=== PATIENT | female | born 1950 | race Hispanic/Latino ===

== ENCOUNTER 2024-09-27 06:24 | Observation (INO) | payer MEDICARE, MEDICAID ==
[2024-09-25 11:59] LABS: IMMATURE GRANULOCYTE ABSOLUTE 0.02 K/uL (0-1); NUCLEATED RED BLOOD CELLS 0.0 % (0.0-0.19); PLATELET COUNT (AUTO) 169 K/uL (130-400); RED BLOOD CELL COUNT(AUTO) 4.27 MIL/uL (4.00-5.50); RED CELL DISTRIBUTION WIDTH 13.3 % (11.0-15.5); WHITE BLOOD COUNT (AUTO) 7.8 K/uL (4.8-10.8)
[2024-09-25 12:09] LABS: CREATININE 1.0 mg/dL (0.5-1.0); GLOMERULAR FILTR. RATE CALC 59.0 mL/min (>90); GLUCOSE,RANDOM 102.0 mg/dL (70-105); SODIUM SERUM 142.0 mmol/L (136-145); UREA NITROGEN, BLOOD 25.0 mg/dL (7-18)
[2024-09-25 12:12] LABS: INR 1.05 (0.85-1.15)
--- NOTE | 2024-09-25 12:21 | EKG ---
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
[2024-09-25 12:23] VITALS: BP 171/80; PULSE 68; RESP 19; TEMP 98.1
--- NOTE | 2024-09-25 12:50 | NUR ---
PREOP CONSUELO RT INSTRUCTED PT ON INCENTIVE SPIROMETRY
[2024-09-27] VITALS (27 sets, daily range): BP systolic 108–144; BP diastolic 43–97; PULSE 66–97; RESP 15–20; TEMP 97.1–98.5; O2SAT 97–98
[~2024-09-27] VITALS: Ht 152.4 cm; Wt 104.8 kg
[~2024-09-27 06:24] MED LIST: ALEN70TA80 PO; ASPI-1443 PO; BENA-8 PO; BUPROPION PO; ERGO500093 PO; GABA-529 PO; MELO-106 PO; METF-446 PO; MONT-39 PO; ROSU40TA88 PO
[2024-09-27 07:02] LABS: APPEARANCE,URINE CLEAR (CLEAR); GLUCOSE, URINE (UA) NEGATIVE (NEGATIVE); LEUKOCYTE ESTERASE ,URINE NEGATIVE Leu/uL (NEGATIVE); NITRATE,URINE NEGATIVE (NEGATIVE); OCCULT BLOOD,URINE NEGATIVE (NEGATIVE)
[2024-09-27] MEDS: 0.9%NACL 1000ML 1,000 ML IV ONE (07:18)
[2024-09-27 07:25] LABS: SQUAMOUS EPITHELIAL CELL,UR FEW /HPF (0-2)
[2024-09-27] MEDS ORDERED: TRANEXAMIC ACID 1000MG/10ML ONE (07:59)
[2024-09-27] MEDS ORDERED: LIDOCAINE PF 100MG/5ML (2%) SYRINGE 5ML ONE (08:04)
[2024-09-27] MEDS ORDERED: SUCCINYLCHOLINE CHLORIDE 20 MG/ML 10 ML VIAL ONE (08:04)
[2024-09-27] MEDS ORDERED: MIDAZOLAM HCL 1 MG/ML 2ML VIAL ONE (08:04)
[2024-09-27] MEDS ORDERED: CALCIUM CARB 500MG PO PRN (10:00)
[2024-09-27] MEDS ORDERED: PoTASSium chl 10% ELIXIR 20MEQ 20 MEQ/15 ML UDCUP PO PRN (10:00)
[2024-09-27] MEDS ORDERED: CYCLOBENZAPRINE HCL 10 MG TABLET PO PRN (10:00)
[2024-09-27] MEDS ORDERED: FERROUS FUMARATE 324 MG TABLET PO PRN (10:00)
[2024-09-27] MEDS ORDERED: PoTASSium chloRIDE 20MEQ ER 20 MEQ ERTAB PO PRN (10:00)
[2024-09-27] MEDS ORDERED: HYDROcodone/APAP 5/325 1 TAB TABLET PO PRN (10:00)
--- NOTE | 2024-09-27 11:56 | DS ---
Discharge Summary Hospital Course Summary: The patient was admitted to the hospital postoperatively on 09/27/2024 after undergoing left total knee arthroplasty. They did well with routine postoperative pain control. They worked well with physical therapy. They developed some acute blood loss anemia but remained asymptomatic. The hospital course was otherwise uncomplicated. They were subsequently able to be discharged on postoperative day 2 once discharge arrangements were made with home health physical therapy. [employer] Wireless Manager(s): None Procedure(s): Left total knee arthroplasty, 09/27/2024 Assessment/Plan: ASSESSMENT: Status post left total knee arthroplasty Acute blood loss anemia PLAN: See discharge instructions Discharge Instructions: Begin working with home health physical therapy. Dressing may be removed 09/29/2024 and left open to air. Showers ok allowing soap and water to run over the wound. Pat dry. Do not submerge wound in tub/pool. Do not apply ointments. Do not apply Betadine. Do not apply peroxide. Ice packs to decrease pain/swelling. Prescriptions have been sent to the pharmacy: *Calvert 5/325mg 1-2 tab every 6 hours as needed for severe pain. (please call for refills) Cyclobenzaprine 5mg 1 tab every 8 hours as needed for muscle spasm pain. Gabapentin 100mg 1 tab every 8 hours (may discontinue if drowsy). Colace 100mg 1 tab orally twice a day as needed for constipation. Aspirin 325mg twice a day for 30 days to prevent blood clots. Follow-up visit scheduled on 10/19/2024 at 9:45 am with [facility]. Home Medications: Active Scripts Aspirin (ASPIRIN) 325 Mg Tablet, 325 MG PO BID for 30 Days, #60 TAB 0 Refills Prov:LESLIE YORK MD 09/29/24 Docusate Sodium (Colace) 100 Mg Capsule, 1 CAP PO BID for 30 Days, #60 CAP 0 Refills Prov:LESLIE YORK MD 09/29/24 Hydrocodone/Acetaminophen (Hydrocodon-Acetaminophen 5-325) 5 Mg-325 Mg Tablet, 1-2 TAB PO Q6HPRN PRN for SEVERE PAIN (7-10), #56 TAB 0 Refills Prov:LESLIE YORK MD 09/29/24 Gabapentin (Neurontin) 100 Mg Capsule, 100 MG PO TID, #90 CAP 0 Refills Prov:LESLIE YORK MD 09/29/24 Cyclobenzaprine HCl (Cyclobenzaprine HCl) 10 Mg Tablet, 5 MG PO Q8H PRN for MUSCLE SPASMS, #45 TAB 0 Refills Prov:LESLIE YORK MD 09/29/24 Reported Medications [Bupropion] No Conflict Check, 300 MG PO AM 09/25/24 Alendronate Sodium (Alendronate Sodium) 70 Mg Tablet, 70 MG PO WEDNESDAY, TAB 09/25/24 Montelukast Sodium (Montelukast Sodium) 10 Mg Tablet, 10 MG PO AM, TAB 09/25/24 Metformin HCl (Metformin HCl) 1,000 Mg Tablet, 1000 MG PO AM, TAB 09/25/24 Meloxicam (Meloxicam) 7.5 Mg Tablet, 7.5 MG PO AM, TAB 09/25/24 Ergocalciferol (Vitamin D2) (Vitamin D2) 1,250 Mcg (76338 Unit) Capsule, 1250 MCG PO WEEKLY, CAP 09/25/24 Rosuvastatin Calcium (Rosuvastatin Calcium) 40 Mg Tablet, 40 MG PO AM, TAB 09/25/24 Benazepril HCl (Benazepril HCl) 20 Mg Tablet, 20 MG PO AM, TAB 09/25/24 Discontinued Reported Medications Aspirin (Aspirin EC) 81 Mg Tablet.dr, 81 MG PO AM, TAB 09/25/24 Gabapentin (Gabapentin) 100 Mg Capsule, 100 MG PO BID, CAP 09/25/24 LESLIE YORK MD Sep 27, 2024 11:56
--- NOTE | 2024-09-27 12:00 | OP ---
Operative Note: DATE OF PROCEDURE: 09/27/24 PREOPERATIVE DIAGNOSIS: Left knee osteoarthritis. POSTOPERATIVE DIAGNOSIS: Left knee osteoarthritis. PROCEDURE PERFORMED: Left knee total knee arthroplasty. SURGEON: Elsa Kingston MD MEDICAL SECRETARY RECEPTIONIST: Estefania Mejía and Jovita Johnson. ANESTHESIA: General with adductor canal block. ANESTHESIA: HIMA Garcias. ESTIMATED BLOOD LOSS: 50cc. COMPLICATIONS: None. DRAINS: None. SPECIMENS REMOVED: resected bone. Not sent to pathology. IMPLANTS: [employer] II BCS size 5 Oxinium femur, size 3 tibial base plate, 32 mm patella, 15 mm polyethylene STATEMENT OF MEDICAL NECESSITY: The patient is a 74-year-old female who suffers from left knee osteoarthritis failing conservative management. After discussion of the risks, benefits, and alternatives with the patient, they voluntarily agreed to undergo the aforementioned procedure. DESCRIPTION OF PROCEDURE: Patient was properly identified in the preoperative holding area. Surgical site marking was verified and surgery consent reviewed. The patient was then taken to the operating room and placed in supine position on the OR table. After induction of general anesthesia, preoperative antibiotics were given, all bony prominences were well-padded, and a well padded tourniquet was applied but not inflated at this time. The left lower extremity was then prepped and draped in usual sterile fashion. Surgical time out was done verifying correct surgery, side, site, and location to be performed. We then began the procedure by exsanguinating the limb using an Esmarch and inflating the tourniquet to 350 mmHg. At this point, we made an anterior midline incision using a 10 blade, coming down sharply the level of the fascia. Skin flaps were elevated medially and laterally. We then obtained a clean 10 blade and performed a standard medial parapatellar arthrotomy. We excised the infrapatellar fat pad. We performed our soft tissue releases off of the tibia. We transected the ACL and removed the anterior portion of the medial & lateral meniscus. We then brought the knee into hyperflexion with the patella everted. We used our entry reamer to enter the femoral canal. We then placed our intramedullary cutting guide for our distal femoral cutting block. We then performed our distal femoral osteotomy ensuring appropriate rotation and removed the bony wafer. We then removed these pins and block and then used jig 2 to size the distal femur with the after mentioned size found. We then placed our 5-in-1 cutting block in 4 degrees of external rotation and took our 5 cuts ensuring to protect the patellar tendon and the collateral ligaments. We then removed the cutting block and our bony fragments using a curved osteotome. We then placed our PCL retractor subluxating the tibia anteriorly. Using an extra medullary tibial cutting guide, we hung the block for our proximal tibial cut taking 2 mm off the more diseased portion. Prior to pinning this block in place, we ensured appropriate varus/valgus alignment and posterior slope similar to the red cliff slope of the patient's knee. We then performed our proximal tibial osteotomy and removed the bony wafer using Bovie electrocautery to release any remaining soft tissue attachments. We then used our tibial sizing paddle and checked once more for varus & valgus alignment and found this to be appropriate. At this point, we pinned our tibial paddle in place. We then removed the PCL retractor and subluxated the tibia posteriorly while we placed our femoral trial component. We then finished preparing the notch with the reamer and box chisel. The notch portion of the trial femoral component was then placed. A posterior stabilized polyethylene, size 9 trial was placed. This was immediately increased up to a size 12 due to laxity with varus and valgus stressing. The knee was then taken through range of motion and found to have stable full range of motion. We then placed a bump under the ankle and everted the patella to perform our freehand cut of the undersurface the patella. We then sized our patella and reamed to the lug holes for this. We placed our trial patellar component and begin to take the knee through range of motion. The patella had mild lateral tracking with the improvement after small lateral release. At this point we began removing our trial components and punched the tibial keel prior to removing our tibial trial component. Final components were opened and cement was mixed on the back table while we injected local cocktail in the posterior capsule. We then thoroughly irrigated out the bone and dried the bony surfaces. We cemented our tibial component in place ensuring to remove excess cement and placed our trial polyethylene. We then cemented our femoral component in place once again taking time to ensure excess cement was removed leg was brought into full extension to help squeeze the excess cement from around the femoral component. We then brought the knee back in a flexion to remove this portion of the cement at this point we placed the ankle in a bump thoroughly irrigated off the patellar component and cemented our patellar component in standard fashion again removing excess cement. While we waited for the cement to cure, we thoroughly irrigated out the wound with normal saline. Once our cement had cured, we took the knee through a range of motion and found full and stable range of motion. We then elected to use the size 15 polyethylene and removed our trial polyethylene. We impacted our final polyethylene component in place in standard fashion and took the knee through a range of motion check once more. This was satisfactory so we began to repair the arthrotomy using #5 Ethibond and #1 Vicryl in interrupted [id number] fashion. Subcutaneous tissue was repaired using 2-0 Vicryl. Running subcuticular 3-0 Monocryl stitch with Dermabond placed over this for the skin. We then applied a foam barrier dressing and a pressure dressing consisting of 4 x 4's fluffs and an Kishan wrap. The tourniquet was then deflated. Patient was awakened from anesthesia, and they were taken to the recovery room in stable condition. ELSA KINGSTON MD Sep 27, 2024 12:00
[2024-09-27] MEDS: SUGAMMADEX SODIUM 200 MG/2 ML VIAL IV ONE (13:30)
--- NOTE | 2024-09-27 14:00 | NUR ---
Ortho Coordinator: Teaching regarding DVT and pneumonia prevention, pain expectations and pain management. Patient in bed, multiple family members at bedside. B SCD sleeves in place and functioning. Patient incentive spirometer in room, patient pending teaching from respiratory therapy. Patient communicated frequency of use for incentive spirometer. Patient return demonstrated proper foot flexion and extension exercises, rationale provided. Pain scale reviewed. Pain management strategy reviewed. Patient's family expressed concerns regarding patient not asking for medication when in pain. Rationale provided, patient verbalized understanding for need for pain management. Patient had right knee performed in 2006. Set expectation for patient to shower tomorrow. Patient intends to discharge home with home health physical therapy. Patient has walker and cane. Patient does have a shower with a bath tub. Reassured patient and family physical therapy will address. Ice pack at bedside, instructed patient to apply after physical therapy. Patient and family verbalized understanding on all topic discussed. No additional questions/concerns at this time. 1410 Respiratory therapy notified of patient arrival to floor.
--- NOTE | 2024-09-27 14:20 | HMCIMG ---
EXAM: XR KNEE LEFT, 2 VIEWS. HISTORY: Postop.. COMPARISON: None. TECHNIQUE: Three views left knee. FINDINGS: Postsurgical changes of total left knee arthroplasty. No hardware appears appropriate position stable at this time. Joint effusion is present. There is gas within the joint space. No acute fracture or osseous abnormality otherwise. No abnormal radiodense foreign body is seen in the soft tissues. IMPRESSION: Post left knee total arthroplasty with no evidence for complication or other abnormality, as detailed above. /[place]
[2024-09-27] MEDS: 0.9%NACL 1000ML 1,000 ML IV SCH (15:44)
[2024-09-27] MEDS: HYDROcodone/APAP 5/325 1 TAB TABLET PO PRN (22:20)
[2024-09-28] VITALS (8 sets, daily range): BP systolic 100–146; BP diastolic 41–66; PULSE 72–84; RESP 16–20; TEMP 98.2–100.2; O2SAT 93–98
[2024-09-28 03:45] LABS: NUCLEATED RED BLOOD CELLS 0.0 % (0.0-0.19); PLATELET COUNT (AUTO) 150.0 K/uL (130-400); RED BLOOD CELL COUNT(AUTO) 3.13 MIL/uL (4.00-5.50); RED CELL DISTRIBUTION WIDTH 13.7 % (11.0-15.5); WHITE BLOOD COUNT (AUTO) 13.8 K/uL (4.8-10.8)
[2024-09-28 03:57] LABS: CREATININE 1.1 mg/dL (0.5-1.0); GLOMERULAR FILTR. RATE CALC 53.0 mL/min (>90); GLUCOSE,RANDOM 135.0 mg/dL (70-105); SODIUM SERUM 141.0 mmol/L (136-145); UREA NITROGEN, BLOOD 29.0 mg/dL (7-18)
--- NOTE | 2024-09-28 08:01 | PN ---
Ortho postop day one. This morning the patient is awake alert and oriented. Reporting adequate pain control. She is already out of bed seated in a chair. The Kishan bandage his already been removed the anterior dressing is intact. She has alternating extension and flexion while seated in a chair. Ice is present to the op-site. The gastrocnemius a soft and nontender. Negative Homans. Vital signs have been stable she has been afebrile. Laboratory results reviewed. Noted to have a drop in hemoglobin and hematocrit as expected after TKA. Currently the patient is asymptomatic. We will continue to observe and treat as necessary per protocol. Voiding on her own but yet to pass gas. Operative findings discussed with the patient. The patient did well yesterday with physical therapy ambulating about 80 ft. Pending further physical therapy this morning. Anticipated discharge goal is home health/PT. Assessment: Status post left total knee arthroplasty. Acute postoperative blood loss anemia. Plan: Continue with Dr. Kingston's TKA protocol and discharge planning. Acute postoperative blood loss anemia addressed with the protocol as necessary Vitals/Labs Vital Signs Date Time Temp Pulse Resp B/P (MAP) Pulse Ox O2 Delivery O2 Flow Rate FiO2 09/28/24 07:38 98.2 80 18 146/58 98 Room Air 09/27/24 20:00 0 21 Laboratory Tests 09/28/24 03:21 Medications Current Medications Cefazolin Sodium 2 gm STK-MED ONCE .ROUTE; Start 09/27/24 at 06:17; Stop 09/27/24 at 06:17; Status DC Sodium Chloride 1,000 ml @ As Directed STK-MED ONCE IV Last administered on 09/27/24at 07:18; Start 09/27/24 at 06:17; Stop 09/27/24 at 06:17; Status DC Tranexamic Acid 1,000 mg STK-MED ONCE .ROUTE; Start 09/27/24 at 07:59; Stop 09/27/24 at 07:59; Status DC Ketorolac Tromethamine 30 mg STK-MED ONCE .ROUTE; Start 09/27/24 at 07:59; Stop 09/27/24 at 07:59; Status DC Ropivacaine 150 mg STK-MED ONCE .ROUTE; Start 09/27/24 at 08:00; Stop 09/27/24 at 08:00; Status DC Lidocaine HCl 100 mg STK-MED ONCE .ROUTE; Start 09/27/24 at 08:04; Stop 09/27/24 at 08:05; Status DC Succinylcholine Chloride 200 mg STK-MED ONCE .ROUTE; Start 09/27/24 at 08:04; Stop 09/27/24 at 08:05; Status DC Midazolam HCl 2 mg STK-MED ONCE .ROUTE; Start 09/27/24 at 08:04; Stop 09/27/24 at 08:05; Status DC Propofol 200 mg STK-MED ONCE IV; Start 09/27/24 at 08:04; Stop 09/27/24 at 08:05; Status DC Rocuronium [place] 50 mg STK-MED ONCE .ROUTE; Start 09/27/24 at 08:05; Stop 09/27/24 at 08:05; Status DC Fentanyl Citrate 100 mcg STK-MED ONCE .ROUTE; Start 09/27/24 at 08:05; Stop 09/27/24 at 08:05; Status DC Ropivacaine 150 mg STK-MED ONCE .ROUTE; Start 09/27/24 at 09:02; Stop 09/27/24 at 09:03; Status DC Dexamethasone Sodium Phosphate 10 mg STK-MED ONCE .ROUTE; Start 09/27/24 at 09:36; Stop 09/27/24 at 09:36; Status DC Sodium Chloride 1,000 ml @ 100 mls/hr Q10H IV Last administered on 09/27/24at 20:39; Start 09/27/24 at 10:00; Stop 09/28/24 at 09:59 Polyethylene Glycol 17 gm DAILY PO; Start 09/28/24 at 09:00; Stop 10/28/24 at 08:59 Bisacodyl 10 mg DAILY PRN RC; Start 09/30/24 at 10:00; Stop 10/30/24 at 09:59 Ferrous Fumarate 324 mg DAILY PRN PO; Start 09/27/24 at 10:00; Stop 10/27/24 at 09:59 Ondansetron HCl 4 mg Q6H PRN IVP; Start 09/27/24 at 10:00; Stop 10/27/24 at 09:59 Calcium Carbonate 500 mg Q12H PRN PO; Start 09/27/24 at 10:00; Stop 10/27/24 at 09:59 Cyclobenzaprine HCl 5 mg Q8H PRN PO; Start 09/27/24 at 10:00; Stop 10/27/24 at 09:59 Gabapentin 100 mg TID PO Last administered on 09/27/24at 20:39; Start 09/27/24 at 14:00; Stop 10/27/24 at 13:59 Potassium Chloride 100 ml @ 100 mls/hr AD PRN IV; Start 09/27/24 at 10:00; Stop 10/27/24 at 09:59 Potassium Chloride 20 meq AD PRN PO; Start 09/27/24 at 10:00; Stop 10/27/24 at 09:59 Potassium Chloride 20 meq AD PRN PO; Start 09/27/24 at 10:00; Stop 10/27/24 at 09:59 Acetaminophen/ Hydrocodone Bitart Q4H PRN PO; Start 09/27/24 at 10:00; Stop 09/27/24 at 10:01; Status DC Acetaminophen/ Hydrocodone Bitart 1 tab Q4H PRN PO; Start 09/27/24 at 10:00; Stop 10/02/24 at 09:59 Acetaminophen/ Hydrocodone Bitart 2 tab Q4H PRN PO Last administered on 09/27/24at 22:20; Start 09/27/24 at 10:30; Stop 10/02/24 at 10:29 Rocuronium [place] 50 mg STK-MED ONCE .ROUTE; Start 09/27/24 at 10:21; Stop 09/27/24 at 10:21; Status DC Fentanyl Citrate 100 mcg STK-MED ONCE .ROUTE; Start 09/27/24 at 10:21; Stop 09/27/24 at 10:22; Status DC Cefazolin Sodium 2 gm STK-MED ONCE IVPB Last administered on 09/27/24at 09:40; Start 09/27/24 at 09:40; Stop 09/27/24 at 10:58; Status DC Tranexamic Acid 1,000 mg STK-MED ONCE IV Last administered on 09/27/24at 09:35; Start 09/27/24 at 09:35; Stop 09/27/24 at 10:58; Status DC Ropivacaine 150 mg STK-MED ONCE IJ Last administered on 09/27/24at 10:52; Start 09/27/24 at 10:52; Stop 09/27/24 at 10:58; Status DC Ketorolac Tromethamine 30 mg STK-MED ONCE IJ Last administered on 09/27/24at 10:52; Start 09/27/24 at 10:52; Stop 09/27/24 at 10:58; Status DC Tranexamic Acid 1,000 mg STK-MED ONCE IV Last administered on 09/27/24at 00:00; Start 09/27/24 at 00:00; Stop 09/27/24 at 10:58; Status DC Montelukast Sodium 10 mg AM PO; Start 09/28/24 at 09:00; Stop 10/28/24 at 08:59 Alendronate Sodium 70 mg QSA@0630 PO; Start 09/30/24 at 06:30; Stop 10/30/24 at 06:29 Lisinopril 20 mg DAILY PO; Start 09/28/24 at 09:00; Stop 10/28/24 at 08:59 Metformin HCl 1,000 mg AM PO; Start 09/28/24 at 09:00; Stop 10/28/24 at 08:59 Atorvastatin Calcium 80 mg HS PO Last administered on 09/27/24at 20:39; Start 09/27/24 at 21:00; Stop 10/27/24 at 20:59 Bupropion HCl 300 mg AM PO; Start 09/28/24 at 09:00; Stop 10/28/24 at 08:59 EJ LOCKE NP Sep 28, 2024 08:01
[2024-09-28] MEDS: LISINOPRIL 20 MG TABLET PO SCH (08:25)
--- NOTE | 2024-09-28 09:50 | NUR ---
Ortho Coordinator: Reinforced teaching. Patient up to chair, family at bedside. Patient reports pain this morning. Did not request medication overnight. Reinforced pain management strategy and use of self pain assessments. Patient verbalized understanding. Dressing clean, dry and intact. Ice pack to surgical knee. Swelling, instructed patient it was acceptable to move from bed to chair multiple times during the day if entire leg is swelling. Patient verbalized understanding. Care team conference: Discussed shower and pain management strategy.
--- NOTE | 2024-09-28 14:44 | NUR ---
[facility] CM MET WITH PT THIS MORNING, INITIAL ASSESSMENT DONE. PATIENT IS INDEPENDENT PRIOR TO ADMISSION, PT VERBALIZED SHE HAS 4 GRANDCHILDREN THAT LIVES WITH HER. PATIENT HAS A ROLLATOR WALKER, GUARD RAILS IN TOILET, PROVIDER 18HRS, PT'S DAUGHTER IS HER PROVIDER AT HOME. DENIES ANY OTHER EQUIPMENT/SERVICES. FEELS SAFE TO GO BACK HOME, STILL DRIVE, DAUGHTER AND GRANDCHILDREN ABLE TO ASSIST WITH TRANSPORTATION AND NEEDS NECESSARY. DISCUSSED MD RECOMMENDATIONS FOR HOME W/HOME HEALTH FOR PT AND DME PT WILL NEED WALKER, PT AGREEABLE, ALSO REQUESTING 3IN1 CHAIR IF POSSIBLE, INFORMED PT INSURANCE MIGHT HAVE TO PAY PRIVATELY FOR 3IN1 CHAIR, PT VERBALIZED UNDERSTANDING, CONSENT SIGNED ENRIQUE. [facility] HOME W/HH AND DME ONCE APPROVED. CM TO CONTINUE TO FOLLOW UP. Addendum: 09/28/24 at 1449 by SOPHIA HAWKINS LVN CM Amended: Links added.
--- NOTE | 2024-09-28 15:35 | NUR ---
CM Note: POC CM received call from [facility] , they are in network, but currently does not have a nurse available to go all the way to [place], unable to accept pt at this time. CM forwarded packet to [facility] via secure fax and email. [facility], no nurse available to go to [facility]. CM pending response from [facility] at this time. Dr Kingston updated. CM pending to [facility]. CM to continue to follow up. Addendum: 09/28/24 at 1539 by SOPHIA HAWKINS LVN Amended: Links added.
--- NOTE | 2024-09-28 17:02 | NUR ---
CM NOTE: PENDING TO [facility] CM SPOKE TO YASMEEN W/[phone] VERBALIZED THEY ARE IN NETWORK, CURRENTLY CHECKING IF THEY HAVE A NURSE THAT CAN GO TO [place], WILL CALL CM BACK ONCE ABLE TO VERIFY. PT PENDING ACCEPTANCE. CM SPOKE TO [facility], VERBALIZED THEY HAVE NURSES THAT GOES TO [place], MADE AWARE OF PT'S INSURANCE, REP WILL VERIFY COVERAGE, WILL CALL CM BACK. PENDING APPROVAL. CM TO CONTINUE TO FOLLOW UP.
--- NOTE | 2024-09-28 19:19 | NUR ---
NURSING NOTE PATIENT TOLERATING PAIN WELL. PAIN MEDICATIONS GIVEN ORDERED BY MD. NO S/S OF DISTRESS NOTED. AMBULATING WITH WALKER WITH MINIMAL ASSISTANCE. PATIENT DENIES HAVING BOWEL MOVEMENT TODAY. PROVIDED WITH PRUNE JUICE TO HELP WITH CONSTIPATION. REPORTS PASSING GAS HOWEVER NO BM YET. NO FURTHER COMPLAINS REPORTED. WILL CONTINUE TO MONITOR.
[2024-09-29 03:42] VITALS: BP 112/62; PULSE 85; RESP 16; TEMP 98.4
[2024-09-29 07:39] VITALS: BP 102/57; PULSE 95; RESP 18; TEMP 100.4
[2024-09-29 08:00] VITALS: O2SAT 96
[2024-09-29] MEDS: HYDROcodone/APAP 5/325 1 TAB TABLET PO PRN (08:13)
--- NOTE | 2024-09-29 09:00 | NUR ---
cm note call made to dr vee and updated both hh accepted and states prefers pt go to [facility]. pt in agreement with either hh.
--- NOTE | 2024-09-29 09:50 | NUR ---
CM NOTE SPOKE TO JYOTSNA WITH [facility] [phone] AND STATES PT IS ACCEPTED, WHENEVER MD CLEARS. ALSO SPOKE TO SOFIA WITH [facility] AND STATES WILL DELIVER DME WALKER AND 3 IN 1 TO PT'S HOSPITAL ROOM TODAY.
[2024-09-29 11:33] VITALS: BP 105/53; PULSE 84; RESP 18; TEMP 98.8
[2024-09-29] MEDS ORDERED: GABA100C PO (14:16)
[2024-09-29] MEDS ORDERED: ASPI-1012 PO (14:16)
[2024-09-29] MEDS ORDERED: CYCL-309 PO (14:16)
[2024-09-29] MEDS ORDERED: DOCU-116 PO (14:16)
[2024-09-29] MEDS ORDERED: HYDR-4060 PO (14:16)
--- NOTE | 2024-09-29 14:30 | NUR ---
REPORT GAVE REPORT TO [facility], NUMBER WASN'T WORKING SPOKE TO CASE MANAGEMENT AND WAS GIVEN SECONDARY NUMBER TO CALL REPORT ON .
--- NOTE | 2024-09-29 14:34 | NUR ---
PATIENT DISCHARGED HOME ID BAND AND IV REMOVED. DISCHARGED INSTRUCTIONS EXPLAINED AND GIVEN TO PATIENT. PATIENT VERBALIZED UNDERSTANDING. BELONGINGS PACKED AND TAKEN BY PATIENT. WHEELED DOWN TO PRIVATE CAR.
[2024-09-30] MEDS ORDERED: ALENDRONATE SODIUM 35 MG TAB PO SCH (06:30)
== END 2024-09-29 14:37 | disposition home or self-care (01) ==
LOC: DAH 06:24 → DAHIP 06:25 → 4AH 13:11
PROVIDERS: ADMIT Student in an Organized Health Care Education/Training Program; ATTEND Student in an Organized Health Care Education/Training Program
DX: M17.12 Unilateral primary osteoarthritis, left knee (principal); D62 Acute posthemorrhagic anemia; I10 Essential (primary) hypertension; E66.01 Morbid (severe) obesity due to excess calories; E10.9 Type 1 diabetes mellitus without complications; Z86.2 Personal history of diseases of the blood and blood-forming organs and certain disorders involving the immune mechanism; Z68.42 Body mass index [BMI] 45.0-49.9, adult; Z79.899 Other long term (current) drug therapy
CPT/HCPCS: 82040; 80048 ×2; 85025; 85610; 85730; 84134; 86140; 36415 ×2; 93005; 87641; 27447; 87086; 82948 ×8; 81001; 73562; 97161; 97116 ×5; 97530 ×5; 85027; G0378 ×53; A4600; A4223 ×2; A4663; J3010 ×2; J3490 ×5; J1100; J0330; J7030 ×2; J2003; J2250; J2704; J1885 ×2; J2795 ×3; J0690 ×2; C1713 ×2; C1776 ×2; A4649 ×2; A4930 ×2; A6255; A5120; A4215; A4222; A4221; A4216